=== PATIENT | female | born 1970 | race Caucasian/White ===

== ENCOUNTER → 2016-09-06 | Outpatient (CLI) | payer BC ==
[~2016-09-06] MED LIST: BSP15 PO; BUSP15TA70 PO; CLON0.5T3 PO; ESCI1TAB10 PO; GABA-113 PO; OXYC1TAB3 PO; PRED20TA2 PO; RANI150T3 PO
[2016-09-06 09:30] LABS: BASO % 0.6 %; BASO ABS # 0.08 K/uL (0-0.2); COMPLETE YES; EOS % 2.4 %; HEMATOCRIT 41.5 % (37-47); IG% 0.2 %; LYMPH % 24.4 %; LYMPH ABS # 3.11 K/uL (1.2-3.4); MEAN CELL VOLUME 91.8 fL (80-100); MEAN CORPUSCULAR HEMOGLOBIN 30.8 pg (25-34); MEAN CORPUSCULAR HGB CONC 33.5 g/dl (32-36); MEAN PLATELET VOLUME 11.2 fL (7.4-10.4); MONO % 4.5 %; NEUT % 67.9 %; PLATELET COUNT 245 K/uL (130-400); RED BLOOD COUNT 4.52 M/uL (4.2-5.4); WHITE BLOOD COUNT 12.75 K/uL (4.8-10.8)
[2016-09-06 10:03] LABS: ALT/SGPT 22 U/L (12-78); BLOOD UREA NITROGEN 15 mg/dl (7-18); CARBON DIOXIDE 28 mmol/L (21-32); CHLORIDE 108 mmol/L (98-107); CHOLESTEROL 213 mg/dl (0-200); GLUCOSE 75 mg/dl (70-99); POTASSIUM 3.8 mmol/L (3.5-5.1); SODIUM 143 mmol/L (136-145); TRIGLYCERIDES 104 mg/dl (0-150); VERY LOW DENSITY LIPOPROT CALC 21 mg/dl
[2016-09-06 10:13] LABS: ALB/GLOB RATIO 1.3 (0.9-2); ALKALINE PHOSPHATASE 80 U/L (45-117); AST/SGOT 15 U/L (15-37); CHOLESTEROL/HDL RATIO 3.6; HDL CHOLESTEROL 59 mg/dl; LDL CHOLESTEROL CALCULATED 133 mg/dl
[2016-09-06 10:17] LABS: CALCIUM 9.2 mg/dl (8.5-10.1)
== END | disposition home or self-care (01) ==
LOC: C.LAB1850 08:49
PROVIDERS: ATTEND Nurse Practitioner Adult Health
DX: E78.5 Hyperlipidemia, unspecified (principal); F41.9 Anxiety disorder, unspecified; E53.8 Deficiency of other specified B group vitamins

== ENCOUNTER → 2017-01-25 | Outpatient (CLI) | payer OTHER ==
[~2017-01-25] MED LIST changes: -BUSP15TA70 PO; -OXYC1TAB3 PO; -PRED20TA2 PO; -RANI150T3 PO
== END | disposition home or self-care (01) ==
LOC: C.LABSPEC 11:13
PROVIDERS: ATTEND Nurse Practitioner Adult Health
DX: N89.8 Other specified noninflammatory disorders of vagina (principal)

== ENCOUNTER 2017-02-03 09:11 | Emergency (ER) | payer OTHER ==
[~2017-02-03] VITALS: Ht 167.6 cm; Wt 74.8 kg
[2017-02-03 09:15] VITALS: TEMP 36.7; Ht 167.6 cm; Wt 74.8 kg
[2017-02-03] MEDS ORDERED: ONDANSETRON INJ 2 MG/ML 2 ML VIAL IV STA (09:24)
[2017-02-03] MEDS ORDERED: SODIUM CHLORIDE 0.9% 1000ML 1,000 ML IV STA (09:24)
[2017-02-03] MEDS ORDERED: DiphenhydrAMINE HCL 50 MG/ML VIAL IV STA (09:24)
[2017-02-03] MEDS ORDERED: FAMOTIDINE 20MG/5ML IV PUSH IV STA (09:24)
[2017-02-03] MEDS ORDERED: METHYLPREDNISOLONE 125 MG VIAL IV STA (09:24)
[2017-02-03] MEDS ORDERED: FAMOTIDINE IV INJ 20 MG in DEXTROSE 5% 100ML 100 ML IV STA (09:30)
[2017-02-03] MEDS ORDERED: BUSP15TA70 PO (09:39)
--- NOTE | 2017-02-03 09:51 | DIAGNOSTIC IMAGING REPORT ---
CHEST ONE VIEW PORTABLE HISTORY: cough COMPARISON: Chest 08/17/2015. FINDINGS: No pleural effusions. No pneumothorax. The heart is normal in size. There are few bibasilar linear densities. Blunting the left lateral costophrenic sulcus. The upper lung zones are clear. IMPRESSION: 1. A few bibasilar linear densities. This could represent atelectasis or a bibasilar pneumonia. 2. Suspect a trace left pleural effusion. Electronically signed by: Nikolas Rueda M.D. 02/03/2017 9:49 AM Dictated Date/Time: 02/03/2017 9:48 AM
[2017-02-03 10:17] LABS: BUN/CREATININE RATIO 18.6 (10-20); CALCIUM 9.3 mg/dl (8.5-10.1); CREATININE 0.79 mg/dl (0.60-1.20)
[2017-02-03 10:28] LABS: HEMATOCRIT 37.3 % (37-47); MEAN CELL VOLUME 88.6 fL (80-100); MEAN CORPUSCULAR HEMOGLOBIN 30.6 pg (25-34); MEAN CORPUSCULAR HGB CONC 34.6 g/dl (32-36); MEAN PLATELET VOLUME 12.3 fL (7.4-10.4); PLATELET COUNT 123 K/uL (130-400); RED BLOOD COUNT 4.21 M/uL (4.2-5.4)
[2017-02-03 10:29] LABS: COMPLETE YES; ECHINOCYTES 1+; EOS % 6.8 %; IG% 0.3 %; LYMPH % 6.6 %; LYMPH ABS # 0.57 K/uL (1.2-3.4); NEUT % 84.3 %; PLT ESTIMATE DECREASED; TEAR DROP CELLS 1+; VACUOLIZATION 1+
[2017-02-03] MEDS ORDERED: POTASSIUM CHLORIDE 20 MEQ TABCR PO STA (10:41)
[2017-02-03] MEDS ORDERED: OXYCODONE HCL IR 5 MG TAB (IMMEDIATE RELEASE) PO STA (10:49)
[2017-02-03] MEDS ORDERED: OXYCODONE HCL IR 5 MG TAB (IMMEDIATE RELEASE) ONE (10:50)
[2017-02-03 11:56] LABS: URINE APPEARANCE CLEAR (CLEAR); URINE BILIRUBIN NEG (NEG); URINE COLOR DK YELLOW; URINE NITRITE NEG (NEG); URINE SPECIFIC GRAVITY 1.014 (1.000-1.030); UROBILINOGEN NEG (NEG)
[2017-02-03 12:23] LABS: MANUAL MICROSCOPIC REQUIRED? NO; REVIEW REQ? NO
[2017-02-03 13:01] VITALS: BP 130/88
[2017-02-03 13:10] VITALS: O2SAT 94
[2017-02-03] MEDS ORDERED: PRED20TA2 PO (13:35)
[2017-02-03] MEDS ORDERED: RANI150T3 PO (13:35)
[2017-02-03] MEDS ORDERED: OXYC1TAB3 PO (13:35)
[2017-02-03 13:40] VITALS: PULSE 100
--- NOTE | 2017-02-03 13:53 | EMERGENCY ROOM VISIT NOTE ---
History Report prepared by Jaskaran: Dany Duran Under the Supervision of: Dr. Arturo Balderas D.O. First contact with patient: 09:21 Chief Complaint: ALLERGIC REACTION Stated Complaint: SWELLING AFTER TAKING ANTIBIOTIC AND FLU History of Present Illness The patient is a 46 year old female who presents to the Emergency Room with complaints of a persistent generalized allergic reaction beginning yesterday. Her symptoms include bilateral hand swelling and leg swelling, bilateral hand pain and throat tightness. She notes that she currently has the flu. The patient has had an anaphylactic reaction to an antibiotic in the past. She is currently taking oral Flagyl for bacterial vaginosis. She notes that she has taken Flagyl vaginally before in the past without difficulty. The patient notes that she finished her Flagyl treatment yesterday. She states that she did not have any vaginal discharge until after she began taking Flagyl. She notes that the infection was noted by vaginal culture. The patient denies vomiting or SOB. She denies skin sloughing. She has taken Benadryl for her symptoms, but has seen minimal relief. Source of History: patient Onset: This week Position: other (generalized) Quality: other (allergic reaction) Timing: other (persistent) Associated Symptoms: + nausea, No SOB, No vomiting Note: The patient's symptoms include bilateral hand swelling and leg swelling, bilateral hand pain and throat tightness Review of Systems See HPI for pertinent positives & negatives. A total of 10 systems reviewed and were otherwise negative. Past Medical & Surgical Medical Problems: (1) Depression Surgical Problems: (1) H/O knee surgery (2) H/O: hysterectomy Family History Patient reports no known family medical history. Social History Smoking Status: Current Every Day Smoker Drug Use: none Marital Status: Housing Status: lives with family Occupation Status: employed Current/Historical Medications Scheduled Buspirone Hcl (Buspar), 15 MG PO BID Clonazepam (Klonopin), 0.5 MG PO PRN Escitalopram Oxalate (Lexapro), 20 MG PO QAM Gabapentin (Neurontin), 300 MG PO QAM Prednisone (Prednisone Tab), 40 MG PO DAILY Ranitidine Hcl (Zantac), 150 MG PO BID Scheduled PRN Oxycodone Immediate Rel Tab (Roxicodone Ir), 1-2 TAB PO Q4H PRN for Severe Pain Allergies Coded Allergies: Nitrofurantoin (Verified Allergy, Severe, ANAPHYLAXIS, 10/29/16) Sulfa Drugs (Verified Allergy, Severe, HIVES, ANAPHYLATIC SHOCK, 02/06/16) Physical Exam Vital Signs Date Time Temp Pulse Resp B/P (MAP) Pulse Ox O2 Delivery O2 Flow Rate FiO2 02/03/17 13:40 100 12 02/03/17 13:25 89 19 02/03/17 13:15 97 02/03/17 13:10 94 18 94 02/03/17 13:01 130/88 02/03/17 12:55 100 19 94 02/03/17 12:40 96 18 94 02/03/17 12:25 96 13 90 02/03/17 12:22 97 15 112/70 91 Room Air 02/03/17 12:10 97 16 90 02/03/17 12:01 112/70 02/03/17 11:55 98 17 93 02/03/17 11:40 94 19 95 02/03/17 11:10 92 18 97 02/03/17 11:05 90 20 99 02/03/17 11:01 117/68 02/03/17 10:35 89 18 96 02/03/17 10:06 107/62 02/03/17 10:05 99 17 107/62 96 Room Air 02/03/17 10:05 100 20 96 02/03/17 09:47 103 02/03/17 09:24 Room Air 02/03/17 09:15 36.7 109 20 102/69 98 Room Air Physical Exam GENERAL: Patient is awake, alert, and in no acute distress. Patient is resting comfortably and showing no signs of anxiety EYES: The conjunctivae are clear. The pupils are round and reactive. EARS, NOSE, MOUTH AND THROAT: The nose is without any evidence of any deformity. Mucous membranes are moist tongue is midline. Mild angioedema noted to the lips. Posterior oropharynx is clear with mild erythema but no swelling. NECK: The neck is nontender and supple. RESPIRATORY: Normal respiratory effort is noted there is no evidence of wheezing rhonchi or rales CARDIOVASCULAR: Tachycardic rate with a regular rhythm. No definite murmur noted to auscultation. GASTROINTESTINAL: The abdomen is soft. Bowel sounds are present in all quadrants. Abdomen is nontender MUSCULOSKELETAL/EXTREMITIES: There is no evidence of gross deformity full range of motion is noted in the hips and shoulders. Pedal edema bilaterally. Diffuse erythematous rash noted to both lower extremities. Rash blanches completely. SKIN: There are no petechiae, pallor or cyanosis noted. NEUROLOGIC: Patient is awake alert and oriented x3. Medical Decision & Procedures ER Provider Diagnostic Interpretation: Radiology results as stated below per my review and radiologist interpretation. CHEST ONE VIEW PORTABLE FINDINGS: No pleural effusions. No pneumothorax. The heart is normal in size. There are few bibasilar linear densities. Blunting the left lateral costophrenic sulcus. The upper lung zones are clear. IMPRESSION: 1. A few bibasilar linear densities. This could represent atelectasis or a bibasilar pneumonia. 2. Suspect a trace left pleural effusion. Electronically signed by: Nikolas Rueda M.D. 02/03/2017 9:49 AM Laboratory Results 02/03/17 09:40 Red Blood Count 4.21, Mean Corpuscular Volume 88.6, Mean Corpuscular Hemoglobin 30.6, Mean Corpuscular Hemoglobin Concent 34.6, Mean Platelet Volume 12.3, Neutrophils (%) (Auto) 84.3, Lymphocytes (%) (Auto) 6.6, Monocytes (%) (Auto) 2.0, Eosinophils (%) (Auto) 6.8, Basophils (%) (Auto) 0.0, Neutrophils # (Auto) 7.34, Lymphocytes # (Auto) 0.57, Monocytes # (Auto) 0.17, Eosinophils # (Auto) 0.59, Basophils # (Auto) 0.00 02/03/17 09:40 Test 02/03/17 09:40 02/03/17 11:30 White Blood Count 8.70 K/uL (4.8-10.8) Red Blood Count 4.21 M/uL (4.2-5.4) Hemoglobin 12.9 g/dL (12.0-16.0) Hematocrit 37.3 % (37-47) Mean Corpuscular Volume 88.6 fL (80-100) Mean Corpuscular Hemoglobin 30.6 pg (25-34) Mean Corpuscular Hemoglobin Concent 34.6 g/dl (32-36) Platelet Count 123 K/uL (130-400) Mean Platelet Volume 12.3 fL (7.4-10.4) Neutrophils (%) (Auto) 84.3 % Lymphocytes (%) (Auto) 6.6 % Monocytes (%) (Auto) 2.0 % Eosinophils (%) (Auto) 6.8 % Basophils (%) (Auto) 0.0 % Neutrophils # (Auto) 7.34 K/uL (1.4-6.5) Lymphocytes # (Auto) 0.57 K/uL (1.2-3.4) Monocytes # (Auto) 0.17 K/uL (0.11-0.59) Eosinophils # (Auto) 0.59 K/uL (0-0.5) Basophils # (Auto) 0.00 K/uL (0-0.2) RDW Standard Deviation 44.8 fL (36.4-46.3) RDW Coefficient of Variation 13.7 % (11.5-14.5) Immature Granulocyte % (Auto) 0.3 % Immature Granulocyte # (Auto) 0.03 K/uL (0.00-0.02) Toxic Vacuolation 1+ Platelet Estimate DECREASED Tear Drop Cells 1+ Echinocytes 1+ Anion Gap 8.0 mmol/L (3-11) Est Creatinine Clear Calc Drug Dose 91.0 ml/min Estimated GFR () 103.3 Estimated GFR (Non- 89.1 BUN/Creatinine Ratio 18.6 (10-20) Calcium Level 9.3 mg/dl (8.5-10.1) Total Bilirubin 1.1 mg/dl (0.2-1) Direct Bilirubin 0.6 mg/dl (0-0.2) Aspartate Amino Transf (AST/SGOT) 81 U/L (15-37) Alanine Aminotransferase (ALT/SGPT) 144 U/L (12-78) Alkaline Phosphatase 220 U/L (45-117) Total Protein 6.0 gm/dl (6.4-8.2) Albumin 3.2 gm/dl (3.4-5.0) Hepatitis B Surface Antigen NEG (NEG) Hepatitis C Antibody NEG (NEG) Monoscreen NEG (NEG) Urine Color DK YELLOW Urine Appearance CLEAR (CLEAR) Urine pH 6.0 (4.5-7.5) Urine Specific Fischer 1.014 (1.000-1.030) Urine Protein NEG (NEG) Urine Glucose (UA) NEG (NEG) Urine Ketones NEG (NEG) Urine Occult Blood NEG (NEG) Urine Nitrite NEG (NEG) Urine Bilirubin NEG (NEG) Urine Urobilinogen NEG (NEG) Urine Leukocyte Esterase TRACE (NEG) Urine WBC (Auto) 1-5 /hpf (0-5) Urine RBC (Auto) 0-4 /hpf (0-4) Urine Hyaline Casts (Auto) 0 /lpf (0-5) Urine Epithelial Cells (Auto) 5-10 /lpf (0-5) Urine Bacteria (Auto) NEG (NEG) Laboratory results per my review. Medications Administered Medications (Trade) Dose Ordered Sig/Krupa Route Start Time Stop Time Status Last Admin Dose Admin Sodium Chloride 1,000 ml @ 999 mls/hr Q1H1M STAT IV 02/03/17 09:24 02/03/17 10:24 DC 02/03/17 10:02 999 MLS/HR Ondansetron HCl (Zofran Inj) 4 mg NOW STAT IV 02/03/17 09:24 02/03/17 09:26 DC 02/03/17 10:02 4 MG Diphenhydramine HCl (Benadryl Inj) 25 mg NOW STAT IV 02/03/17 09:24 02/03/17 09:26 DC 02/03/17 10:02 25 MG Methylprednisolone Sodium Succinate (Solu-Medrol IV) 125 mg NOW STAT IV 02/03/17 09:24 02/03/17 09:26 DC 02/03/17 10:03 125 MG Famotidine 20 mg/ Dextrose 102 ml @ 204 mls/hr NOW STAT IV 02/03/17 09:30 02/03/17 09:59 DC 02/03/17 10:02 204 MLS/HR Potassium Chloride (Klor-Con Tab) 20 meq NOW STAT PO 02/03/17 10:41 02/03/17 10:42 DC 02/03/17 10:52 20 MEQ Oxycodone HCl (Roxicodone Immediate Rel Tab) 5 mg NOW STAT PO 02/03/17 10:49 02/03/17 10:50 DC 02/03/17 10:52 5 MG ED Course 0921: The patient was evaluated in room A2. A complete history and physical examination were performed. 0924: Ordered Solu Medrol 125 mg IV, Benadryl Inj 25 mg IV, Zofran Inj 4 mg IV, NSS 1,000 ml @ 999 mls/hr IV. 0930: Ordered Famotidine 20 mg/Dextrose 102 mL @ 204 mL/hr IV. 1041: Ordered Klor-Con Tab 20 meq PO. 1049: Ordered Roxicodone Immediate Rel Tab 5 mg PO. 1332: Upon reevaluation, the patient is resting comfortably. I discussed the results and treatment plan with her. She verbalized agreement of the treatment plan. The patient was discharged home. Medical Decision Differential diagnosis: Etiologies such as allergic reaction, anaphylaxis, urticaria, Chaudhry-Apolinar syndrome, toxic epidermal necrolysis, erythema multiforme, cellulitis, as well as others were entertained. Nursing notes reviewed. The patient is a 46-year-old female who presented to emergency department for an evaluation of allergic reaction rash. The patient started having symptoms yesterday. She has a rash on both lower extremities which appears to be blanchable. She also has upper extremity pain which I feel is secondary to urticaria. I discussed the patient's laboratory and radiographic studies with her. She was treated with medications in the emergency department for allergic reaction. She was found have elevation in her liver function studies. I'm unsure of the cause of this however could be related to the Flagyl but the patient appears to now be allergic to. The patient was feeling much better on subsequent reevaluation. Initially I discussed her case with the emergency department pillowcase cleaner. The patient was encouraged to rest and avoid any strenuous activity. She was also encouraged to continue all medications as before but stopped taking the Flagyl. She was also encouraged to follow-up with her primary care physician for repeat laboratory studies and return to the emergency department immediately if symptoms change worsen or the need arises. Medication Reconcilliation Current Medication List: was personally reviewed by me Blood Pressure Screening Patient's blood pressure: Normal blood pressure Blood pressure disposition: Did not require urgent referral Impression Primary Impression: Allergic reaction Additional Impression: Elevated LFTs Scribe Attestation The scribe's documentation has been prepared under my direction and personally reviewed by me in its entirety. I confirm that the note above accurately reflects all work, treatment, procedures, and medical decision making performed by me. Departure Information Dispostion Home / Self-Care Prescriptions Oxycodone Immediate Rel Tab (ROXICODONE IR) 5 Mg Tab 1-2 TAB PO Q4H Y for Severe Pain, #24 TAB Prov: Arturo Balderas, DO 02/03/17 Ranitidine Hcl (ZANTAC) 150 Mg Tab 150 MG PO BID, #60 TAB Prov: Arturo Balderas, DO 02/03/17 Prednisone (Prednisone Tab) 20 Mg Tab 40 MG PO DAILY, #10 TAB Prov: Arturo Balderas, DO 02/03/17 Referrals Jerri Barbour C.R.N.P. (PCP) Forms HOME CARE DOCUMENTATION FORM, IMPORTANT VISIT INFORMATION Patient Instructions ED Drug React Allergic, My [facility] Additional Instructions Continue all medications as prescribed. Follow-up with your family to schedule. I would recommend repeat laboratory studies to be drawn within the next few days to really assess for changes in her liver function studies. Return to the emergency department immediately if symptoms change worsen or the need arises. continue using Benadryl as directed for symptomatically relief. Problem Qualifiers Primary Impression: Allergic reaction Encounter type: initial encounter Qualified Codes: T78.40XA - Allergy, unspecified, initial encounter
[2017-02-06 12:45] LABS: EBV EARLY ANTIGEN AB < 9.00 U/ML
== END 2017-02-03 14:05 | disposition home or self-care (01) ==
LOC: C.EDB 09:14 → C.EDA 14:05
DX: T78.40XA Allergy, unspecified, initial encounter (principal); X58.XXXA Exposure to other specified factors, initial encounter; R79.89 Other specified abnormal findings of blood chemistry

== ENCOUNTER → 2017-02-06 | Outpatient (CLI) | payer OTHER ==
[~2017-02-06] MED LIST changes: -BSP15 PO; +BUSP15TA70 PO; +OXYC1TAB3 PO; +PRED20TA2 PO; +RANI150T3 PO
[2017-02-06 14:23] LABS: HEMATOCRIT 33.6 % (37-47); MEAN CELL VOLUME 89.4 fL (80-100); MEAN CORPUSCULAR HEMOGLOBIN 30.1 pg (25-34); MEAN CORPUSCULAR HGB CONC 33.6 g/dl (32-36); PLATELET COUNT 221 K/uL (130-400); RED BLOOD COUNT 3.76 M/uL (4.2-5.4); WHITE BLOOD COUNT 15.31 K/uL (4.8-10.8)
[2017-02-06 15:13] LABS: BASO % 0.5 %; BASO ABS # 0.07 K/uL (0-0.2); COMPLETE YES; EOS % 4.4 %; IG% 3.2 %; LYMPH % 40.4 %; LYMPH ABS # 6.19 K/uL (1.2-3.4); MONO % 9.7 %; NEUT % 41.8 %
[2017-02-06 15:31] LABS: ALB/GLOB RATIO 1.1 (0.9-2); ALKALINE PHOSPHATASE 176 U/L (45-117); ALT/SGPT 94 U/L (12-78); AST/SGOT 31 U/L (15-37); BLOOD UREA NITROGEN 9 mg/dl (7-18); CALCIUM 8.5 mg/dl (8.5-10.1); CARBON DIOXIDE 28 mmol/L (21-32); CHLORIDE 106 mmol/L (98-107); CREATININE 0.63 mg/dl (0.60-1.20); GLUCOSE 98 mg/dl (70-99); POTASSIUM 3.2 mmol/L (3.5-5.1); SODIUM 141 mmol/L (136-145)
== END | disposition home or self-care (01) ==
LOC: C.LAB1850 13:08
PROVIDERS: ATTEND Nurse Practitioner Adult Health
DX: R74.8 Abnormal levels of other serum enzymes (principal); T78.40XA Allergy, unspecified, initial encounter; X58.XXXA Exposure to other specified factors, initial encounter

== ENCOUNTER → 2017-06-12 | Outpatient (CLI) | payer OTHER ==
--- NOTE | 2017-06-12 07:57 | DIAGNOSTIC IMAGING REPORT ---
LUMBAR SPINE W/O CONTRAST CLINICAL HISTORY: 46 years-old Female presenting with SPINAL STENOSIS. TECHNIQUE: Multisequence, multiplanar MR imaging of the lumbar spine was performed without the use of intravenous contrast. IV contrast: None. COMPARISON: None. FINDINGS: Localizer images: Unremarkable. Normal lumbar lordosis. Vertebral bodies maintain normal height, alignment, and bone marrow signal intensity. Intervertebral discs demonstrate minimal disc bulge at L4-5 and L5-S1 without significant spinal canal narrowing. Mild bilateral neural foraminal narrowing at L4-5 and moderate at L5-S1 results. Abutment of the exiting L5 nerve roots noted. Spinal cord ends in good position at the superior endplate of L1. Cauda equina normal in morphology. Paraspinal soft tissues normal. IMPRESSION: Mild degenerative change at L4-5 and L5-S1 with neural foraminal narrowing greatest at L5-S1. No evidence of spinal canal stenosis. Electronically signed by: Kojo Sheets M.D. 06/12/2017 7:55 AM Dictated Date/Time: 06/12/2017 7:49 AM
== END | disposition home or self-care (01) ==
LOC: C.MRI 07:07
PROVIDERS: ATTEND Family Medicine
DX: M48.00 Spinal stenosis, site unspecified (principal)

== ENCOUNTER → 2017-06-16 | Outpatient (CLI) | payer OTHER ==
--- NOTE | 2017-06-19 15:17 | MAMMOGRAPHY REPORT ---
BILATERAL DIGITAL SCREENING MAMMOGRAM TOMOSYNTHESIS WITH CAD: 06/16/2017 CLINICAL HISTORY: Routine screening. Patient has no complaints. TECHNIQUE: Breast tomosynthesis in addition to standard 2D mammography was performed. Current study was also evaluated with a Computer Aided Detection (CAD) system. COMPARISON: Comparison is made to exam dated: 03/26/2015 mammogram - [facility]. Also outside prior mammograms dated 09/30/2013, 09/28/2012, 07/20/2011. BREAST COMPOSITION: The tissue of both breasts is heterogeneously dense, which may obscure small mas ses. FINDINGS: No suspicious masses, calcifications, or areas of architectural distortion are noted in ei ther breast. There has been no significant interval change compared to prior exams. IMPRESSION: ACR BI-RADS CATEGORY 1: NEGATIVE There is no mammographic evidence of malignancy. A 1 year screening mammogram is recommended. The pa tient will receive written notification of the results. Approximately 10% of breast cancers are not detected with mammography. A negative mammographic report should not delay biopsy if a clinically suggestive mass is present. Kym Merritt M.D. ah/:06/16/2017 14:21:11 Shipping Clerk Packing: Olga Moore, [facility] letter sent: Normal 1/2 BI-RADS Code: ACR BI-RADS Category 1: Negative
== END | disposition home or self-care (01) ==
LOC: C.MAMM 13:49
PROVIDERS: ATTEND Family Medicine
DX: Z12.31 Encounter for screening mammogram for malignant neoplasm of breast (principal)

== ENCOUNTER → 2017-07-17 | Outpatient (CLI) | payer OTHER ==
--- NOTE | 2017-07-18 07:33 | DIAGNOSTIC IMAGING REPORT ---
MRI OF THE LEFT KNEE WITHOUT CONTRAST CLINICAL HISTORY: Severe left knee pain following fall 3 weeks ago. COMPARISON STUDY: Left knee radiographs July 11, 2017. TECHNIQUE: Utilizing a 1.5 Raysa magnet and dedicated coil, multiplanar, multiecho imaging of the left knee was performed without intravenous or intraarticular contrast. FINDINGS: Alignment of the left knee is anatomic. Increased signal within the proximal patellar tendon shown on the sagittal proton density sequence is likely artifactual as this is not confirmed on the remainder of the pulsing sequences. Note is made of a 8.3 x 2.6 x 1.1 cm left popliteal cyst. The anterior and posterior cruciate ligaments are intact. The medial collateral ligament and lateral collateral ligament complex are also intact. There is moderate chondrosis of the patellar cartilage with mild chondrosis of the trochlear cartilage. There is a suspected oblique tear of the body and anterior horn of the medial meniscus. Lateral meniscus is intact. Subchondral cystic change within the posterior aspect of the proximal tibia is degenerative. There is moderate chondrosis within the medial compartment and mild chondrosis within the lateral compartment. IMPRESSION: 1. No acute fracture or joint effusion of the left knee. 2. 8.3 x 2.6 x 1.1 cm left popliteal cyst. 3. 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 4. Suspected oblique tear of the body and anterior horn of the medial meniscus. No lateral meniscal tear. Electronically signed by: Thom Santos M.D. 07/18/2017 7:31 AM Dictated Date/Time: 07/18/2017 7:21 AM
== END | disposition home or self-care (01) ==
LOC: C.MRIBC 15:36
PROVIDERS: ATTEND Orthopaedic Surgery
DX: M25.562 Pain in left knee (principal); M71.22 Synovial cyst of popliteal space [Baker], left knee

== ENCOUNTER 2017-08-18 20:13 | Emergency (ER) | payer OTHER ==
[~2017-08-18] VITALS: Ht 165.1 cm; Wt 71.9 kg
[~2017-08-18 20:13] MED LIST changes: -OXYC1TAB3 PO; -PRED20TA2 PO; -RANI150T3 PO
[2017-08-18 20:29] VITALS: Ht 165.1 cm; Wt 71.9 kg
[2017-08-18] MEDS ORDERED: BUPR-79 PO (20:45)
[2017-08-18] MEDS ORDERED: CLB/200 PO (20:45)
[2017-08-18] MEDS ORDERED: NORCO 5/325MG HOME PACK PO ONE (21:00)
--- NOTE | 2017-08-18 21:03 | EMERGENCY ROOM VISIT NOTE ---
History First contact with patient: 20:37 Chief Complaint: KNEEPAIN Stated Complaint: L KNEE PAIN History of Present Illness The patient is a 47 year old female who presents to the Emergency Room with complaints of worsening left knee pain. The patient reports that she had an MRI performed last month that showed a possible patella fracture, cyst and meniscal tear. She is under the management of Dr. Camacho who recommended physical therapy. The patient reports that she has increased her physical therapy at this point, and experienced sudden onset of pain yesterday. The patient also received a cortisone shot to the knee on 07/19. The patient reports that she tried to call Dr. Camacho's office today, but they did not return her phone call. Upon further questioning, the patient reports that she has had a prior history of right knee arthroscopy. She does have crutches at home but has not tried to use them for her pain relief. Her pain is worsened with ambulation. She denies any paresthesias or numbness of the left lower extremity. She denies any back pain. She currently rates her discomfort an 8 out of 10. Review of Systems 10 system review was performed and was negative except for pertinent positives and negatives as indicated in history of present illness Past Medical/Surgical History Medical Problems: (1) Depression Surgical Problems: (1) H/O knee surgery (2) H/O: hysterectomy Family History Patient reports no known family medical history. Social History Smoking Status: Current Every Day Smoker Drug Use: none Marital Status: Housing Status: lives with family Occupation Status: employed Current/Historical Medications Scheduled Bupropion (Wellbutrin Sr), 150 MG PO BID Buspirone Hcl (Buspar), 15 MG PO BID Celecoxib (CeleBREX), 300 MG PO DAILY Clonazepam (Klonopin), 0.5 MG PO PRN Escitalopram Oxalate (Lexapro), 20 MG PO QAM Physical Exam Vital Signs Date Time Temp Pulse Resp B/P (MAP) Pulse Ox O2 Delivery O2 Flow Rate FiO2 08/18/17 20:29 107 20 153/79 97 Room Air Physical Exam CONSTITUTIONAL: Healthy and well nourished. Alert and oriented X 3 with positive affect. HEENT: Normocephalic, atraumatic. Pupils equal, round and reactive. NECK: Full active range of motion without discomfort. MUSCULOSKELETAL: Examination of left knee does not show any skin changes, erythema or edema. No joint effusion appreciated. Range of motion worsens the patient's discomfort. Ligamentous exam is grossly normal. No popliteal masses appreciated. Pedal pulses are intact. INTEGUMENTARY: No rash or other significant dermatologic conditions noted. NEUROLOGIC: Left lower extremity is sensory intact. Medical Decision & Procedures ED Course Patient history and physical exam were performed. Nurse's notes were reviewed. Vital signs were reviewed. I did review the patient's MRI from last month which showed a 8.3 x 2.6 x 1.1 cm left popliteal cyst; moderate tricompartment chondrosis of the left knee, most pronounced within the patellofemoral and medial compartments; and suspected oblique tear of the body and anterior horn of the medial meniscus. No lateral meniscal tear. The patient believes that her pain significantly worsened after physical therapy. I am concerned for possible meniscal tear propagation. The patient was instructed to get out her crutches and use them to minimize weight on the leg. A knee immobilizer was also applied. Review of the [place] Prescription Drug Monitoring Program shows that the patient filled a prescription for Moosic 5/325, dispense #32 on 08/11/17. This was prescribed by her PCP. The patient reports that she ran out of her medicines. Further review shows that she has received several recent narcotic prescriptions. Because the patient still has an active prescription, I advised the patient that I would not write a prescription for her. She was provided a home pack and encouraged to follow-up with her PCP or orthopedics for further pain management. I explained that her best for her pain management is nonweightbearing at this time, using her knee immobilizer and crutches for pain relief. She may also take ibuprofen for additional pain relief. She was instructed to follow-up with Dr. Camacho for further reevaluation and management. The patient voiced understanding of all discharge instructions, and rated her discomfort a 7 out of 10 at the conclusion of my exam. Medical Decision [place] Drug Monitoring Program Search Results: patient reviewed within database, see additional documentation Medication Reconcilliation Current Medication List: was personally reviewed by me Blood Pressure Screening Patient's blood pressure: Elevated blood pressure Blood pressure disposition: Elevated BP felt to be situational, Did not require urgent referral Impression Primary Impression: Left knee pain Departure Information Dispostion Home / Self-Care Forms HOME CARE DOCUMENTATION FORM, IMPORTANT VISIT INFORMATION Patient Instructions My [facility] Additional Instructions Ice and elevate knee for swelling and pain. Wear knee immobilizer when up and about. Use your home crutches as needed for additional pain relief -NO LIMPING. Ibuprofen 600 mg every 6-8 hours. Take your additional pain medications as prescribed by your family doctor as needed. Follow-up with Dr. Camacho for further management - call the office Monday for an appointment. Problem Qualifiers Primary Impression: Left knee pain Chronicity: acute Qualified Codes: M25.562 - Pain in left knee
[2017-08-18 21:09] VITALS: BP 153/79; PULSE 107; O2SAT 97
== END 2017-08-18 21:18 | disposition home or self-care (01) ==
LOC: C.EDB 20:15 → C.EDD 21:18
DX: M25.562 Pain in left knee (principal); F32.9 Major depressive disorder, single episode, unspecified; Z98.890 Other specified postprocedural states; F17.200 Nicotine dependence, unspecified, uncomplicated